=== PATIENT | male | born 1940 | race Caucasian/White ===

== ENCOUNTER → 2021-07-22 | Outpatient (CLI) | payer MEDICARE ==
[2014-10-26 12:22] VITALS: BP 115/65
[~2021-07-22] MED LIST: AMLO-186 PO; CRESTOR10 MG PO; ESCITALOPRAM OX10 MG PO; HYDR-2145 PO; LISI-130 PO; TRAZ-123 PO
--- NOTE | 2021-07-22 12:47 | CARD ---
MR#: [id number] Date of Study: 07/22/2021 Ordering Physician: YNES SCHULTZ, Referring Physician: YNES SCHULTZ, Tech: Lorrie Rae [facility] APPROVED REPORT EXAM: Two-dimensional and M-mode echocardiogram with Doppler and color Doppler. Other Information Quality : Technically LimitedHR: 57bpm Rhythm : NSR INDICATION Dyspnea RISK FACTORS Hypertension 2D DIMENSIONS Left Atrium(2D)4.9 (1.6-4.0cm)IVSd1.3 (0.7-1.1cm) Aortic Root(2D)3.7 (2.0-3.7cm)LVDd4.9 (3.9-5.9cm) LVOT Diameter2.3 (1.8-2.4cm)PWd1.1 (0.7-1.1cm) IVSs1.6 (0.8-1.2cm)LVDs3.5 (2.5-4.0cm) FS (%) 28.0 %PWs1.6 (0.8-1.2cm) SV61.4 mlLVEF(%)54.1 (>50%) Aortic Valve AoV Peak Venu.100.2cm/sAoV VTI20.4cm AO Peak GR.4.0mmHgLVOT Peak Venu.86.0cm/s AO Mean GR.2mmHgAVA (VMAX)3.45cm2 Mitral Valve MV E Sknpxryp39.0cm/sMV DECEL [id number] MV A Hnvtwsvk23.7cm/sMV COR53is E/A Ratio1.1MVA (PHT)3.30cm2 TDI E/Medial E'12.1 Pulmonary Valve PV Peak Ksfwknjt102.9cm/sPV Peak Grad.4mmHg Tricuspid Valve TR P. [id number]/sTR Peak Gr.30mmHg LEFT VENTRICLE The left ventricle is normal size. There is mild concentric left ventricular hypertrophy. The left ve ntricular systolic function is normal. Estimated ejection fraction 65%. There is normal LV segmental wall motion. Transmitral Doppler flow pattern is Grade II-pseudonormal filling dynamics. RIGHT VENTRICLE The right ventricle is normal size. There is normal right ventricular wall thickness. The right ventr icular systolic function is normal. ATRIA The left atrium size is normal. The right atrium size is normal. The interatrial septum is intact wit h no evidence for an atrial septal defect or patent foramen ovale as noted on 2-D or Doppler imaging. AORTIC VALVE The aortic valve is normal in structure and function. Doppler and Color Flow revealed mild aortic reg urgitation. There is no significant aortic valvular stenosis. MITRAL VALVE The mitral valve is normal in structure and function. There is no evidence of mitral valve prolapse. There is no mitral valve stenosis. Doppler and Color Flow revealed no mitral valve regurgitation note d. TRICUSPID VALVE The tricuspid valve is normal in structure and function. Doppler and Color Flow revealed mild tricusp id regurgitation. Estimated PAP 30-32 mmHg. There is no tricuspid valve stenosis. PULMONIC VALVE The pulmonary valve is normal in structure and function. Doppler and Color Flow revealed trace pulmon ic valvular regurgitation. GREAT VESSELS The aortic root is normal in size. The ascending aorta is normal in size. The IVC is normal in size a nd collapses >50% with inspiration. PERICARDIAL EFFUSION There is no evidence of significant pericardial effusion. Critical Notification Critical Value: No <Conclusion> The left ventricular systolic function is normal. Estimated ejection fraction 65%. There is normal LV segmental wall motion. Transmitral Doppler flow pattern is Grade II-pseudonormal filling dynamics. Mild aortic regurgitation. Mild tricuspid regurgitation. Estimated PAP 30-32 mmHg. There is no evidence of significant pericardial effusion. Signed by : Martinez Gilman, Electronically Approved : 07/22/2021 12:46:53
== END ==
LOC: ECHO 09:49
PROVIDERS: ATTEND Family Medicine
DX: I08.2 Rheumatic disorders of both aortic and tricuspid valves (principal); I48.0 Paroxysmal atrial fibrillation
CPT/HCPCS: 93306; C8929